=== PATIENT | female | born 1965 | race Caucasian/White ===

== ENCOUNTER 2017-01-09 20:28 | Emergency (ER) | payer MEDICARE | END 2017-01-09 21:46 | disposition home or self-care (01) | LOC: ER 20:28 | DX: F44.89 Other dissociative and conversion disorders (principal); J02.9 Acute pharyngitis, unspecified; Z79.899 Other long term (current) drug therapy | CPT/HCPCS: 36415; 96374; 96375; J1100; J2060 ==

== ENCOUNTER 2017-01-23 15:56 | Emergency (ER) | payer MEDICARE | END 2017-01-23 16:15 | disposition home or self-care (01) | LOC: ER 15:56 | DX: M25.562 Pain in left knee (principal); M25.561 Pain in right knee; F31.9 Bipolar disorder, unspecified; I10 Essential (primary) hypertension; Z90.710 Acquired absence of both cervix and uterus; Z79.899 Other long term (current) drug therapy ==

== ENCOUNTER 2017-03-25 13:05 | Emergency (ER) | payer MEDICARE | END 2017-03-25 13:58 | disposition home or self-care (01) | LOC: ER 13:05 | DX: F41.9 Anxiety disorder, unspecified (principal); F31.9 Bipolar disorder, unspecified; I10 Essential (primary) hypertension; Z90.710 Acquired absence of both cervix and uterus; Z79.899 Other long term (current) drug therapy ==